=== PATIENT | female | born 1970 | race Hispanic/Latino ===

== ENCOUNTER 2019-08-15 06:30 | Day surgery (SDC) | payer MEDICAID ==
[~2019-08-15] VITALS: Ht 165.1 cm; Wt 92.5 kg
[2019-08-15] VITALS (7 sets, daily range): BP systolic 115–147; BP diastolic 45–96
[~2019-08-15 06:30] MED LIST: SODIUM CHLORIDE 0.9% 1000ML 1,000 ML IV ONE
[2019-08-15] MEDS ORDERED: PROPOFOL 10 MG/ML 20ML VIAL IV ONE ×2 (08:46)
== END 2019-08-15 09:58 | disposition home or self-care (01) ==
LOC: DAH 06:30
PROVIDERS: ATTEND Internal Medicine Gastroenterology
DX: K62.5 Hemorrhage of anus and rectum (principal); K29.70 Gastritis, unspecified, without bleeding; K57.30 Diverticulosis of large intestine without perforation or abscess without bleeding; Z98.890 Other specified postprocedural states; Z90.49 Acquired absence of other specified parts of digestive tract; Z87.891 Personal history of nicotine dependence; Z72.89 Other problems related to lifestyle; Z82.49 Family history of ischemic heart disease and other diseases of the circulatory system
CPT/HCPCS: 43239; 45378; 88305; A4215; A4221; A4222; A4223; A4606; A4620; A4663; J2704 ×2; J7030